=== PATIENT | male | born 1970 | race African-American/Black ===

== ENCOUNTER 2023-04-10 13:47 | Outpatient (CLI) | payer MEDICARE, MEDICAID, SELFPAY | END 2023-04-10 13:48 | disposition home or self-care (01) | LOC: ANHAUDIO 13:48 | DX: Z01.10 Encounter for examination of ears and hearing without abnormal findings (principal); H90.3 Sensorineural hearing loss, bilateral | CPT/HCPCS: 92553; 92555; 92567 ==

== ENCOUNTER 2024-10-25 07:45 | Outpatient (CLI) | payer MEDICARE, MEDICAID, SELFPAY ==
[2024-10-25 08:34] LABS: Alanine Aminotransferase 16 U/L (6-50); Albumin Level 4.1 g/dL (3.5-5.1); Alkaline Phosphatase 50 U/L (38-126); Anion Gap 5 mmol/L (4-12); Aspartate Amino Transferase 23 U/L (17-59); Bilirubin,Total 0.3 mg/dL (0.2-1.3); Blood Urea Nitrogen 20 mg/dL (9-20); Calcium 9.3 mg/dL (8.4-10.2); Carbon Dioxide 33 mmol/L (22-30); Chloride 101 mmol/L (98-107); Estimated Glomerular Filt Rate > 60; Glucose 125 mg/dL (65-110); Potassium 3.6 mmol/L (3.4-5.0); Sodium 139 mmol/L (137-145)
[2024-10-25 09:05] LABS: Cortisol Baseline 3.68 ug/dL
[2024-10-25 09:06] LABS: Thyroid Stimulating Hormone 0.903 uIU/mL (0.465-4.680)
[2024-10-25 09:22] LABS: Free T4 Free Thyroxine 0.69 ng/dL (0.78-2.19)
[2024-10-25 10:07] LABS: Cortisol 30 Minute 6.69 ug/dL
[2024-10-25 10:34] LABS: Cortisol 60 Minute 8.21 ug/dL
[2024-10-26 12:43] LABS: Osmolality, Urine. 973 mOsm/kg (50-1200)
[2024-10-27 22:39] LABS: Z Score Male -1.7 SD (-2.0 - +2.0)
[2024-10-30 05:34] LABS: LH. 4.4 mIU/mL (1.5-9.3)
== END 2024-10-25 07:46 | disposition home or self-care (01) ==
PROVIDERS: Visit Provider Internal Medicine
DX: D35.2 Benign neoplasm of pituitary gland (principal)
CPT/HCPCS: 36415; 80053; 82024; 82533; 83001; 83002; 83003; 83520; 83935; 84146; 84305; 84439; 84443; 96372; J0834